=== PATIENT | male | born 1945 | race Caucasian/White ===

== ENCOUNTER → 2020-03-31 | Outpatient (CLI) | payer OTHER ==
[~2020-03-31] MED LIST: ALLO300 PO; ALLOPURINOL; ASPI81EC PO; CHOL10002; CHOL10002 PO; LIPITOR; LISI20 PO; MULTIVITAMIN; OMEP20ER PO; TADA10TA; TESTOSTERONE CREAM; VITAMIN E
== END ==
LOC: PLD 11:10 → LAB SHORT 11:10
DX: D48.5 Neoplasm of uncertain behavior of skin (principal)
CPT/HCPCS: 88305

== ENCOUNTER → 2021-03-15 | Outpatient (CLI) | payer OTHER | END | disposition home or self-care (01) | LOC: LAB 14:12 → LAB SHORT 14:12 | DX: D22.5 Melanocytic nevi of trunk (principal) | CPT/HCPCS: 88305 ==

== ENCOUNTER 2021-08-05 06:52 | Day surgery (SDC) | payer OTHER ==
[~2021-08-05] VITALS: Ht 188 cm; Wt 96.5 kg
[~2021-08-05 06:52] MED LIST changes: +ACET500 PO; +Allergy Relief10 M1 PO; +EPIPEN JR0.15 MG/0. IJ; +LOSARTAN POTAS100 M1 PO; +MELATONIN5 M1 PO; +NIFE30ER PO; +TAMS.4ER PO; +TESTOSTERONE60 GM TOP
--- NOTE | 2021-08-05 07:11 | NUR ---
08/05/21 0711 Herb Anderson CALL LIGHT WITHIN REACH
== END 2021-08-05 08:38 | disposition home or self-care (01) ==
LOC: ORSCSDS 06:52
PROVIDERS: Ophthalmology
PROC: 08RJ3JZ Replacement of Right Lens with Synthetic Substitute, Percutaneous Approach (ICD-10-PCS; principal; 2021-08-05 08:00)
DX: H25.11 Age-related nuclear cataract, right eye (principal); I10 Essential (primary) hypertension; K21.9 Gastro-esophageal reflux disease without esophagitis; N18.9 Chronic kidney disease, unspecified; Z79.899 Other long term (current) drug therapy
CPT/HCPCS: J2001; J2250; J3010; J3301; J7040; V2632

== ENCOUNTER 2021-08-19 07:11 | Day surgery (SDC) | payer OTHER ==
[~2021-08-19] VITALS: Ht 188 cm; Wt 94.7 kg
--- NOTE | 2021-08-19 07:30 | NUR ---
08/19/21 0730 Herb Anderson CALL LIGHT WITHIN REACH
--- NOTE | 2021-08-19 08:55 | NUR ---
08/19/21 0855 Jose Jauregui IV IN LEFT HAND REMOVED, WOULD NOT FLUSH OR RUN. FAILED IV ATTEMPT IN RIGHT HAND AND LEFT AC. SUCCESSFUL ATTEMPT IN LEFT AC.
== END 2021-08-19 09:25 | disposition home or self-care (01) ==
LOC: ORSCSDS 07:11
PROVIDERS: Ophthalmology
PROC: 08RK3JZ Replacement of Left Lens with Synthetic Substitute, Percutaneous Approach (ICD-10-PCS; principal; 2021-08-19 08:30)
DX: H25.12 Age-related nuclear cataract, left eye (principal); E78.5 Hyperlipidemia, unspecified; I12.9 Hypertensive chronic kidney disease with stage 1 through stage 4 chronic kidney disease, or unspecified chronic kidney disease; N18.9 Chronic kidney disease, unspecified; Z79.899 Other long term (current) drug therapy
CPT/HCPCS: J2001; J2250; J3010; J3301; J7040; V2632

== ENCOUNTER → 2022-10-06 | Outpatient (CLI) | payer OTHER ==
[2022-10-07 08:49] LABS: Stool Occult Bld Immuno 1 Negative (NEGATIVE); Stool Occult Bld Immuno 2 Negative (NEGATIVE); Stool Occult Bld Immuno 3 Negative (NEGATIVE)
== END | disposition home or self-care (01) ==
LOC: LAB 07:30 → LAB SHORT 07:30
PROVIDERS: Internal Medicine
DX: D64.9 Anemia, unspecified (principal)
CPT/HCPCS: 82274

== ENCOUNTER → 2022-11-24 | Outpatient (CLI) | payer OTHER | END | disposition home or self-care (01) | LOC: LAB SHORT 08:55 → LAB 08:55 | DX: C07 Malignant neoplasm of parotid gland (principal) | CPT/HCPCS: 88173 ==

== ENCOUNTER 2023-02-02 10:05 | Day surgery (SDC) | payer OTHER ==
[~2023-02-02] VITALS: Ht 188 cm; Wt 89.8 kg
[2023-02-02] MEDS ORDERED: TRAZ100 PO (10:30)
[2023-02-02 12:45] VITALS: BP 128/84
--- NOTE | 2023-02-02 12:53 | NUR ---
02/02/23 1253 TAY CANAS PT NPO UNTIL 1900 THIS EVENING PER -CHELLE AND FAM AWARE.
== END 2023-02-02 12:44 | disposition home or self-care (01) ==
LOC: ORSCSDS 10:05
PROVIDERS: Surgery
PROC: 0DH63UZ Insertion of Feeding Device into Stomach, Percutaneous Approach (ICD-10-PCS; principal; 2023-02-02 11:30)
DX: C09.9 Malignant neoplasm of tonsil, unspecified (principal); R13.10 Dysphagia, unspecified; K21.9 Gastro-esophageal reflux disease without esophagitis; I12.9 Hypertensive chronic kidney disease with stage 1 through stage 4 chronic kidney disease, or unspecified chronic kidney disease; N18.9 Chronic kidney disease, unspecified; E78.5 Hyperlipidemia, unspecified; Z79.899 Other long term (current) drug therapy
CPT/HCPCS: C1769; J0690; J2704; J7120

== ENCOUNTER → 2023-02-19 | Outpatient (CLI) | payer OTHER ==
[~2023-02-19] MED LIST changes: +TRAZ100 PO
[2023-02-19 09:58] LABS: BASOPHILS ABSOLUTE AUTO 0.02 K/mm3 (0.00-0.23); BASOPHILS PERCENT AUTO 0 % (0-2); EOSINOPHILS PERCENT AUTO 0 % (0-6); Hemoglobin 12.9 g/dL (13.5-17.5); IMMATURE GRAN ABSOLUTE AUTO 0.01 K/mm3 (0.00-0.10); IMMATURE GRAN PERCENT AUTO 0 % (0-1); LYMPHOCYTES ABSOLUTE AUTO 1.68 K/mm3 (0.84-5.20); LYMPHOCYTES PERCENT AUTO 23 % (21-46); MONOCYTES PERCENT AUTO 14 % (4-13); Mean Corpuscular HGB 31.2 pg (26.0-34.0); Mean Corpuscular HGB Conc 34.9 g/dL (31.5-36.5); Mean Corpuscular Volume 90 fL (80-100); Mean Platelet Volume 10.6 fL (9.1-12.4); NEUTROPHILS PERCENT AUTO 62 % (41-73); Platelet Count 243 K/mm3 (150-400); RDW Coefficient Variation 13.4 % (11.7-14.2); RDW Standard Deviation 44.2 fL (35.1-46.3); Red Blood Cell Count 4.13 M/mm3 (4.30-5.90); White Blood Cell Count 7.21 K/mm3 (4.00-11.30)
[2023-02-19 10:12] LABS: Albumin, Blood 3.6 g/dL (3.4-5.0); Bilirubin, Total 0.3 mg/dL (0.1-1.0); Bun/Creatinine Ratio 14.6 (12.0-20.0); Calcium, Blood 9.6 mg/dL (8.5-10.1); Creatinine, Blood 1.37 mg/dL (0.60-1.20); Globulin, Blood 3.5 g/dL (2.2-4.0); Magnesium, Blood 1.8 mg/dL (1.6-2.4); Total Protein, Blood 7.1 g/dL (6.4-8.2)
== END ==
LOC: LAB 09:49 → LAB SHORT 09:49
PROVIDERS: Physician Assistant
DX: R55 Syncope and collapse (principal)
CPT/HCPCS: 80053; 83735; 84484; 85025

== ENCOUNTER → 2023-03-13 | Outpatient (CLI) | payer OTHER ==
[2023-03-17 05:12] LABS: HSV-1 DNA Negative (Negative); HSV-2 DNA Negative (Negative)
== END ==
LOC: LAB SHORT 09:38 → LAB 09:38
PROVIDERS: Dermatology
DX: L08.9 Local infection of the skin and subcutaneous tissue, unspecified (principal)
CPT/HCPCS: 87070; 87205; 87529; 87798

== ENCOUNTER → 2023-07-17 | Outpatient (CLI) | payer OTHER ==
[2023-07-17 13:31] LABS: BASOPHILS ABSOLUTE AUTO 0.05 K/mm3 (0.00-0.23); BASOPHILS PERCENT AUTO 1 % (0-2); EOSINOPHILS ABSOLUTE AUTO 0.24 K/mm3 (0.00-0.68); EOSINOPHILS PERCENT AUTO 4 % (0-6); Hematocrit 38.5 % (37.0-53.0); Hemoglobin 12.9 g/dL (13.5-17.5); IMMATURE GRAN ABSOLUTE AUTO 0.04 K/mm3 (0.00-0.10); IMMATURE GRAN PERCENT AUTO 1 % (0-1); LYMPHOCYTES ABSOLUTE AUTO 1.08 K/mm3 (0.84-5.20); LYMPHOCYTES PERCENT AUTO 18 % (21-46); MONOCYTES ABSOLUTE AUTO 0.47 K/mm3 (0.16-1.47); MONOCYTES PERCENT AUTO 8 % (4-13); Mean Corpuscular HGB 31.5 pg (26.0-34.0); Mean Corpuscular HGB Conc 33.5 g/dL (31.5-36.5); Mean Corpuscular Volume 94 fL (80-100); Mean Platelet Volume 9.8 fL (9.1-12.4); NEUTROPHILS ABSOLUTE AUTO 4.16 K/mm3 (1.96-9.15); NEUTROPHILS PERCENT AUTO 69 % (41-73); Platelet Count 252 K/mm3 (150-400); RDW Coefficient Variation 12.2 % (11.7-14.2); Red Blood Cell Count 4.09 M/mm3 (4.30-5.90); White Blood Cell Count 6.04 K/mm3 (4.00-11.30)
[2023-07-17 13:54] LABS: Albumin, Blood 4.2 g/dL (3.4-5.0); Albumin/Globulin Ratio 1.2 (0.8-1.8); Bilirubin, Total 0.3 mg/dL (0.1-1.0); Bun/Creatinine Ratio 17.9 (12.0-20.0); Creatinine, Blood 1.4 mg/dL (0.60-1.20); Globulin, Blood 3.5 g/dL (2.2-4.0); Magnesium, Blood 1.8 mg/dL (1.6-2.4); Potassium, Blood 4.1 mmol/L (3.5-5.5); Thyroid Stimulating Hormone 3.238 uIU/mL (0.360-4.800); Total Protein, Blood 7.7 g/dL (6.4-8.2)
== END ==
LOC: LAB 13:27 → LAB SHORT 13:27
PROVIDERS: Physician Assistant
DX: E86.0 Dehydration (principal); R53.83 Other fatigue
CPT/HCPCS: 80053; 83735; 84443; 85025

== ENCOUNTER 2024-10-14 09:05 | Day surgery (SDC) | payer OTHER ==
[2024-10-14 09:35] VITALS: BP 142/73
--- NOTE | 2024-10-14 11:22 | NUR ---
PT CAME INTO IMG WAITING AREA AT 0935, VSS, COAGS WITHIN . UNABLE TO DO PROCEUDRE PER DR HUTCHINS. DISCHARGED HOME WITH FAMILY AND ALL BELONINGS.
== END 2024-10-14 23:00 | disposition home or self-care (01) ==
LOC: CT 09:05
DX: R91.1 Solitary pulmonary nodule (principal)
CPT/HCPCS: 32408; 77012

== ENCOUNTER → 2025-04-02 | Outpatient (CLI) | payer OTHER | LOC: LAB SHORT 09:54 → LAB 09:54 | DX: N39.0 Urinary tract infection, site not specified (principal) | CPT/HCPCS: 87077; 87086; 87186 ==